=== PATIENT | male | born 1960 | race Caucasian/White ===

== ENCOUNTER 2020-03-01 05:49 | Observation (INO) | payer OTHER, SELFPAY ==
[2020-03-01] VITALS (11 sets, daily range): BP systolic 140–179; BP diastolic 63–84; PULSE 49–60; RESP 15–18; TEMP 36.1–36.6; O2SAT 94–96; BMI 54.3; BMI 53.1; BMI 54.4
--- NOTE | 2020-03-01 05:52 | ED.RN ---
CALLED FOR EKG PER RN REQUEST, PULLED OLD EKGS FOR
--- NOTE | 2020-03-01 05:56 | RAD_ITS ---
STUDY: X-RAY CHEST REASON FOR EXAM: Male, 59 years old. Chest pain and shortness of breath. TECHNIQUE: AP portable upright COMPARISON: None. FINDINGS: No evidence of pneumonia, pulmonary edema, pneumothorax or pleural effusion. Cardiac silhouette, hilar and mediastinal contours with no acute findings. Heart size normal. Atherosclerosis of the thoracic aorta. Degenerative osseous changes with no acute osseous abnormality. RAD/Chest 1 View (Portable) IMPRESSION: No acute findings. Electronically Signed: Andrés Barba, at 6:52 EDT Tel , Service support ,
--- NOTE | 2020-03-01 05:56 | EKG12_ITS ---
Test Reason : Blood Pressure : / mmHG Vent. Rate : 050 BPM Atrial Rate : 050 BPM P-R Int : 136 ms QRS Dur : 118 ms QT Int : 508 ms P-R-T Axes : 064 -08 098 degrees QTc Int : [address] & T wave abnormality, consider lateral ischemia Prolonged QT Abnormal ECG When compared with ECG of 01-MAR-2020 05:53, MANUAL COMPARISON REQUIRED, DATA IS UNCONFIRMED Confirmed by BIPIN MATT, RUPERT ([id number]), book or script editor EL KOLB ([id number]) on 03/05/2020 2:16:04 PM Referred By: SUJIT Confirmed By:ELYSIA VOSS MD
--- NOTE | 2020-03-01 05:57 | ED.VIS.CHEST ---
History of Present Illness Chief Complaint: Chest Pain Informant: Patient Onset: Hours - 3-3.5 Activity at onset: - - awoke with sx Timing: Continuous Quality: Dull Location: Substernal - Radiating to both sides of chest, worse to the left Current Severity: Moderate Maximum Severity: Severe Worsened By: Exertion - light activity, at work. Not Worsened By: Movement of Arm, Movement of Torso, Breathing, Coughing Relieved By: NTG Associated Symptoms: Nausea, Diaphoresis, Dyspnea, Lightheadedness. 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 Started breaking out in a cold sweat, felt lightheaded, weak, dyspnea, and nauseated with it. Never had this before. His father of a heart attack at age 65 and had a CABG 13 years before that. Patient is a non-smoker. Compliant with his blood pressure medication. Paramedics stated that at his initial evaluation, his blood pressure was over 200, after the 2 nitroglycerin and came down to the 170s which is where it is now for us. Patient still having chest discomfort that is significant, after 2 nitroglycerin. No known history of heart problems. He did have a remote prior treadmill stress test that was negative, he states it was not recent and he cannot remember how many years ago it was. Prior Similar Symptoms: No - Feels distinctly different than reflux burning he has had in the past in his esophagus Recent Illness/Hospitalization: No CVD Risk Factors: Hypertension, Family History 1' </=55. Negative for: Diabetes, Hypercholesterolemia, Smoking PE Risk Factors: Recent Travel/Surgery - Travel to [place] 1-2 weeks ago, Cancer - History of prostate cancer, recently treated with implanted seeds. Negative for: Recenet Immobilization, Prior DVT or PE, OCP + Smoking + >/=35 - Past Medical History (1) HTN (hypertension) Status: Chronic (2) GERD (gastroesophageal reflux disease) Status: Chronic Past Medical History - Allergies and Home Meds Allergies/Adverse Reactions: Allergies No Known Allergies Allergy (Verified 03/01/20 06:00) Primary Care Physician: NOT,DEFINED [NON-STAFF] - Smoking Status: Former smoker - quit 14 yrs ago Drugs: None - Family History Paternal Family History: Reports: Heart Disease - father Review of Systems General: Reports: Malaise, Sweats. Denies: Chills, Fever Eyes: Denies: Visual changes - bilaterally, Diplopia ENT: Denies: Bilateral ear pain, Rhinorrhea, Sore throat Cardiovascular: Reports: Chest pain. Denies: Palpitations Respiratory: Reports: Dyspnea. Denies: Cough, Dyspnea on exertion Gastrointestinal: Reports: Nausea. Denies: Abdominal pain, Vomiting, Diarrhea, Melena, Hematochezia Genitourinary: Denies: Dysuria, Hematuria, Frequency Musculoskeletal: Reports: Swelling - BLE 1-2 wks, Extremity Pain - chronic left shoulder pain due to partial rotator cuff tear. Denies: Myalgias, Neck pain, Back pain Skin: Denies: Rash, Wounds Neurological: Denies: Headache, Weakness, Numbness Physical Exam Vital Signs/Narrative: Vital Signs Temp Pulse Resp BP Pulse Ox 03/01/20 05:53 96.9 F L 60 18 175/84 H 95 Inital Vital Signs reviewed: Yes General: Well nourished, Well developed, Obese, No Acute Distress Head: Normocephalic, Atraumatic Eyes: Perrl, EOMI ENT: Moist mucous membranes, No rhinorrhea Neck: Supple, Nontender, No lymphadenopathy, No JVD Cardiovascular: Regular rate, Regular rhythm, No murmurs. Negative for: Tachycardia Respiratory: No distress, CTA bilaterally, Chest nontender Abdomen: Soft, Nontender, Nondistended, Normal bowel sounds Back: Nontender, Normal Inspection Extremities: Nontender, Edema - 1+ bLE midshin Skin: Normal color, No rash, No Trauma Neurological: Alert, Oriented x3, Cranial nerves II-XII grossly intact, Normal Strength, Normal Sensation Psychological: Normal affect, Normal Mood Diagnostic/Tx/Re-eval Impressions Chest X-Ray 03/01/20 05:56 IMPRESSION: No acute findings. Electronically Signed: Andrés Barba, at 6:52 EDT Tel , Service support , 03/01/20 05:56 Chest 1 View (Portable) [RAD] Stat Laboratory Results 03/01/20 03/01/20 03/01/20 06:20 06:20 06:20 WBC 5.8 RBC 4.84 Hgb 12.3 L Hct 39.7 L MCV 82.0 MCH 25.4 L MCHC 31.0 L RDW Std Deviation 46.2 H RDW Coeff of Prasanna 15.5 H Plt Count 206 MPV 11.0 Immature Gran % (Auto) 0.200 Neut % (Auto) 64.9 Lymph % (Auto) 18.4 L Barber % (Auto) 10.1 H Eos % (Auto) 5.9 H Baso % (Auto) 0.5 Absolute Neuts (auto) 3.8 Absolute Lymphs (auto) 1.06 Nucleated RBC % 0 APTT 28.0 Sodium 139 Potassium 4.8 Chloride 108 H Carbon Dioxide 31.0 Anion Gap 0 L BUN 19 H Creatinine 0.91 Estim Creat Clear Calc 101.22 Est GFR (MDRD) Af Amer 110 Est GFR (MDRD) Non-Af 91 BUN/Creatinine Ratio 20.9 H Glucose 123 H Calcium 8.9 Troponin I < 0.015 - Rhythm Strip Rhythm Strip: Sinus Rhythm Rate: 60 Ectopy: None - EKG Initial EKG Interpretation: Sinus Rhythm, No Acute Injury Pattern, Inverted T-Waves - lateral leads Prior: Changed MICHELA Risk: No Positive MICHELA Elements Score: 0 - Medical Decision Making Patient has a concerning history. He was improving with nitroglycerin, we gave him a third which did not make a big difference, so he was additionally treated with morphine and nitroglycerin paste. He remained hemodynamically stable, his blood pressure came down to 140/70, being over 200 prior to arrival for EMS. His MICHELA score is 0, however his heart score is 5. His troponin returned negative, his EKG is abnormal with changes in T wave inversions compared with his old one laterally, however no ST segment deviations. Plan is for admission to PCU. H-2 E-1 A-1 R-1 T-0 ED Disposition - Plan for ED Patient: Disposition: [facility] Diagnosis: Chest pain, unspecified Referrals: NOT,DEFINED [NON-STAFF] -
[2020-03-01] MEDS: Nitroglycerin SL (ED/IMG/CATH) 0.4 MG TABLET SUBLINGUAL (06:11)
[2020-03-01 06:37] LABS: Absolute Lymphocyte Count 1.06 X10^3/uL (0.83-4.51); Absolute Neutrophil Count 3.8 X10^3/uL (2.0-7.7); Basophil# 0.03 X10^3/uL; Basophil% 0.5 % (0-1); Eosinophil# 0.34 X10^3/uL; Eosinophils% 5.9 % (0-5); Hematocrit 39.7 % (40-54); Hemoglobin 12.3 g/dL (13.0-16.5); Lymphocyte # 1.06 X10^3/ul (4.0); Lymphocyte % 18.4 % (19-41); Mean Corpuscular Hgb 25.4 pg (27.0-32.0); Monocyte# 0.58 X10^3/uL; Monocyte% 10.1 % (0-10); NRBC Flagged by Analyzer 0 % (0-5); Neutrophil # 3.75 X10^3/uL (2.7-7.7); Neutrophil % 64.9 % (47-70); Platelet Count 206 K/mm3 (150-450); RBC Distribution Width CV 15.5 % (11.6-14.6); RBC Distribution Width SD 46.2 fl (35.1-43.9); Red Blood Count 4.84 M/mm3 (4.6-6.2); White Blood Count 5.8 K/mm3 (4.4-11.0)
[2020-03-01] MEDS: 0.9% Normal Saline 1,000 ML 150 ML IV (06:39)
[2020-03-01] MEDS: Morphine 4 MG/ML Syringe IV ×3 (06:40→18:16)
[2020-03-01] MEDS: Ondansetron 4 MG/2 ML Vial IV (06:40)
[2020-03-01 06:57] LABS: Anion Gap 0 (5-15); BUN 19 mg/dL (7-18); BUN/Creat Ratio 20.9 RATIO (10-20); Calcium,Total 8.9 mg/dL (8.5-10.1); Chloride 108 mmol/L (98-107); Creatinine, Serum 0.91 mg/dL (0.70-1.30); EST Glomerular Filtration Rate 91 mL/min (>60); Est Glom Filt Rate - Afr Amer 110 mL/min (>60); Estimated Creatinine Clearance 101.22 ml/min; Glucose 123 mg/dL (74-106); Potassium 4.8 mmol/L (3.5-5.1); Sodium Level 139 mmol/L (136-145)
[2020-03-01] MEDS: Acetaminophen 500 MG Tablet 1000 MG PO (07:22)
[2020-03-01] MEDS: Nitroglycerin Oint 1 INCH PACKET TRANSDERM. (07:23)
--- NOTE | 2020-03-01 08:08 | EKG12_ITS ---
Test Reason : CP Blood Pressure : / mmHG Vent. Rate : 061 BPM Atrial Rate : 061 BPM P-R Int : 172 ms QRS Dur : 110 ms QT Int : 440 ms P-R-T Axes : 010 -27 101 degrees QTc Int : 442 ms Normal sinus rhythm Nonspecific ST and T wave abnormality Abnormal ECG Confirmed by AMRIK MATT, ANURAG ([id number]), newspaper or periodical editor SHAUN VIDES ([id number]) on 03/06/2020 8:51:35 AM Referred By: BB Confirmed By:ANURAG ROWLEY MD
--- NOTE | 2020-03-01 08:59 | PCM.HP.STD ---
Problem List (1) Chest pain, unspecified Status: Acute Qualifiers: Chest pain type: precordial pain Qualified Code(s): R07.2 - Precordial pain History of Present Illness Date of Admission: 03/01/20 Chief Complaint: Chest pain The patient is a 59 year old M who was seen in the emergency room at [facility] with chief complaint of chest pain which started approximately 230 this morning after he got up to get ready for work. Chest pain has been continuous since that time, he describes it as if somebody punched me in the chest, it goes to his mid back area and somewhat to the left shoulder area. Is not accompanied by any nausea or shortness of breath. Patient has no history of heart disease, he does take medicines for hypertension. Work-up in the emergency room included an EKG which showed T wave inversions in lead I and aVL which was different from his previous EKG several years ago. There were no acute ischemic changes on EKG. Chest x-ray was ordered and was unremarkable, lab was ordered and his lab was unremarkable including troponin. On examination, patient appeared to have similar chest pain on palpation of the chest during my exam. Patient will be placed in observation status on PCU, cardiac enzymes will be repeated x1, if his next troponin is normal he will undergo a pharmacological nuclear stress test today. Past Medical History Past Medical History (Chronic Problems): Chronic Problems HTN (hypertension) (Chronic) GERD (gastroesophageal reflux disease) (Chronic) Allergies No Known Allergies Allergy (Verified 03/01/20 06:00) Home Medications: Ambulatory Orders Medication Instructions Recorded Amitriptyline HCl [Elavil] 10 mg PO QHS 03/01/20 Cyanocobalamin (Vitamin B-12) 1,000 mcg PO DAILY 03/01/20 [Vitamin B-12] Losartan Potassium [Cozaar] 100 mg PO QHS 03/01/20 Metoprolol Tartrate [Lopressor 50 mg PO BID 03/01/20 (Beta Arcelia)] Omeprazole 20 mg PO DAILY 03/01/20 Sertraline HCl [Zoloft] 25 mg PO DAILY 03/01/20 Topiramate 25 mg PO BID 03/01/20 Surgical History: cholecystectomy, - - Multiple hernia repair, removal of seminoma, radioactive seed implants for prostate cancer, foot surgery Psychiatric History: No pertinent psych hx Lives: Spouse/ Significant Other Smoking Status: Former smoker Tobacco Use: Non-smoker Alcohol: None Drugs: None - *Family History Paternal History Items: Heart Disease - of PA at age 65 Maternal History Items: Hypertension Review of Systems Constitutional: Denies: Anorexia, Chills, Fever, Night Sweats, Malaise, Weakness, Weight Change, Fatigue Eyes: Denies: Cataracts, Conjunctivae Inflammation, Double vision, Drainage HEENT: Denies: Difficulty Swallowing, Dysphasia, Ear Pain, Eye Pain, Nasal bleeding, Nasal Congestion, Post Nasal Drip Cardiovascular: Reports: Chest Pain. Denies: Claudication, Chest Pressure, Chest Tightness, Edema, Heaviness, Orthopnea, Palpitations Respiratory: Denies: Cough, Hemoptysis, Shortness of breath at rest, Shortness of breath upon exertion Gastrointestinal: Denies: Abdominal Pain, Constipation, Diarrhea, Hematemesis, Hematochezia, Nausea, Melena, Vomiting Genitourinary: Denies: Dysuria, Frequency, Hematuria, Hesitancy, Urgency Musculoskeletal: Denies: Back Pain, Foot Pain, Joint Pain, Joint stiffness, Joint swelling Skin: Denies: Dryness, Jaundice, Pruritis, Rash Neurological: Denies: Blurred vision, Double vision, Slurred speech, Difficulty swallowing, Focal weakness, Headaches, Incoordination, Numbness, Tingling Psychiatric: Denies: Anxiety, Depression, Homicidal Ideations, Suicidal Ideations Endocrine: Denies: Change in Body Habitus, Heat/ Cold Intolerance, Polydipsia, Polyuria Hematologic/ Lymphatic: Denies: Adenopathy, Anemia, Easy Bruising, Easy Bleeding, Petechiae, Purpura VTE Information - Inpt Only VTE Present on Admission: No VTE Mechan Device Prophylaxis: None VTE Pharm Prophylaxis ordered?: No Reason prophylaxis not ordered:: Treatment Not Indicated Patient Problems: Active and Suspected Problems Chest pain, unspecified (Acute) - Physical Exam Vitals/I&O's: Vital Signs Temp Pulse Resp BP Pulse Ox 97.6 F L 49 L 18 151/82 H 96 03/01/20 08:10 03/01/20 08:10 03/01/20 08:10 03/01/20 08:10 03/01/20 08:10 Oxygen Delivery Method Room Air Weight: 182.707 kg Body Mass Index (BMI) 53.1 Intake and Output for Last 24 Hours 02/28/20 02/29/20 03/01/20 23:59 23:59 23:59 Intake Total Balance General: Alert, Oriented x3, Cooperative, No apparent distress, Well developed, Well nourished HEENT: Atraumatic, PERRLA, EOMI, Normocephalic Oral: Moist Mucosa Neck: Supple, No JVD, Negative Carotid Bruits, Trachea Midline, Thyroid Normal Size and Texture Lungs: Clear to auscultation, Normal air movement, No rhonchi, No wheeze, No rales Cardiovascular: Regular rate, Regular Rhythm, Normal S1, Normal S2, No murmurs, PMI Normal, No rub noted Abdomen: Bowel Sounds Present, Soft, Non Tender, Non-Distended, No hernias noted Extremities: No clubbing, Capillary Refill Less than 3 Seconds, Edema - Generalized lower leg edema is noted bilaterally Skin: No rashes, No breakdown Musculoskeletal: No Tenderness to Palpation of Joints or Extremities Neurological: Cranial nerves II-XII grossly intact, Neuro grossly intact, Sensory exam intact to light touch and pain, Coordination normal Psych/Mental Status: Normal Affect, Appropriate, Alert and oriented to time, place, person, mood and affect Laboratory Results 03/01/20 06:20: WBC 5.8, RBC 4.84, Hgb 12.3 L, Hct 39.7 L, MCV 82.0, MCH 25.4 L, MCHC 31.0 L, RDW Std Deviation 46.2 H, RDW Coeff of Prasanna 15.5 H, Plt Count 206, MPV 11.0, Immature Gran % (Auto) 0.200, Neut % (Auto) 64.9, Lymph % (Auto) 18.4 L, [place] % (Auto) 10.1 H, Eos % (Auto) 5.9 H, Baso % (Auto) 0.5, Absolute Neuts (auto) 3.8, Absolute Lymphs (auto) 1.06, Nucleated RBC % 0 03/01/20 06:20: APTT 28.0 03/01/20 06:20: Sodium 139, Potassium 4.8, Chloride 108 H, Carbon Dioxide 31.0, Anion Gap 0 L, BUN 19 H, Creatinine 0.91, Estim Creat Clear Calc 101.22, Est GFR (MDRD) Af Amer 110, Est GFR (MDRD) Non-Af 91, BUN/Creatinine Ratio 20.9 H, Glucose 123 H, Calcium 8.9, Troponin I < 0.015 Current Medications Sodium Chloride () 250 mls @ 15 mls/hr IV .[id number] PRN PRN Reason: Saline Flush Sodium Chloride () 250 mls @ 15 mls/hr IV .[id number] PRN PRN Reason: Additional IVPB Infusion Morphine Sulfate () 4 mg IV Q3H PRN PRN PRN Reason: Pain Score 6-10/10 Ondansetron HCl (Zofran) 4 mg IV Q8H PRN PRN PRN Reason: NAUSEA/VOMITING Sodium Chloride () 10 - 40 ml IV UD PRN PRN Reason: SALINE FLUSH Assessment/Plan All Active Problems Chest pain, unspecified (Acute) #1 precordial chest pain-etiology unclear, patient will be placed in observation status on PCU, repeat troponin will be obtained, this troponin is unremarkable he will undergo a pharmacological nuclear stress test today. #2 essential hypertension-patient is on Lotensin #3 class III obesity/morbid obesity-may complicate treatment #4 GERD
[2020-03-01] MEDS: 0.9% Saline Lock 10 ML Syringe IV ×2 (11:30→18:16)
--- NOTE | 2020-03-01 13:50 | STRESSREP ---
Stress Test Report Date: 03/01/2020 Procedure: Pharmacologic stress nuclear imaging study Indications: Chest pain Consent: Per the patient Procedure: The patient underwent pharmacologic (Regadenoson) evaluation with a peak heart rate of 69 beats per minute (42 %predicted maximal heart rate) and a peak blood pressure of 168/104 mmHg. The baseline ECG demonstrated normal sinus rhythm, nonspecific ST-T changes. EKG during lexiscan infusion revealed no significant change from baseline. EKG post infusion revealed no significant change from baseline [There were no cardiac dysrhythmias pretest, during pharmacologic infusion, or recovery]. [There was no complaint of chest discomfort during pharmacologic infusion or recovery]. The examination was discontinued secondary to completion of protocol. Impression: 1. Lexiscan stress test test is negative for Lexiscan infusion induced EKG changes of ischemia. 2. Lexiscan stress test test is negative for Lexiscan infusion induced chest pain. 3. Results of the nuclear portion of the test is as below Myocardial perfusion imaging study: Technique: The patient was injected with 14.6 millicuries of technetium 99m Cardiolite and subsequently rest SPECT Cardiolite nuclear imaging was obtained in the horizontal long, vertical long, and short axis views. The patient underwent pharmacologic (Regadenoson) evaluation. Please see above for details. The patient was injected with 44.7 millicuries of technetium 99m Cardiolite and subsequently stress SPECT Cardiolite nuclear imaging was obtained in the horizontal long, vertical long, and short axis views. A gated Cardiolite study at peak stress was obtained. Interpretation: Rest and stress SPECT Cardiolite nuclear imaging status post realignment, normalization, and attenuation correction demonstrate [mildly decreased radioisotope uptake in the apex on both the rest and stress images. There is no significant reversibility suggestive of significant ischemia]. Gated images reveal no significant regional wall motion abnormalities. The reported LVEF is 52%. Impression: 1. There is no evidence of significant ischemia or infarction. 2. Estimated ejection fraction is 52%. This note was generated with [employer] software. It may contain incorrect words, spelling, and punctuation that were not noted in checking the note before signing.
--- NOTE | 2020-03-01 15:46 | CT_ITS ---
STUDY: CTA CHEST REASON FOR EXAM: Male, 59 years old. 80 rad into the mid back and left shoulder. Former smoker. History of prostate cancer with radioactive seed implantation. History of testicular seminoma with orchiectomy. History of cholecystectomy, hernia repair, hypertension and reflux disease.. RADIATION DOSAGE (If Supplied By Facility): CTDIvol = ( 18.6 ) mGy, DLP = ( 533.52 ) mGycm TECHNIQUE: The examination was performed with the intravenous administration of 100 ML [id number]. Post-processing of the angiographic images was performed, with multiplanar reformation and 3D reconstruction. Individualized dose optimization techniques were used for this CT. COMPARISON: None. FINDINGS: Normal enhancement of the main pulmonary artery and right and left pulmonary arteries. Normal enhancement of the bilateral peripheral pulmonary arteries. There is no demonstrated pulmonary embolism. Minimal atherosclerotic changes of the thoracic aorta without aneurysm. There is no demonstrated aortic dissection. Normal heart and pericardium. Nonspecific subcentimeter mediastinal lymphadenopathy. Normal hilar regions. Normal visualized trachea and bronchi. The lungs are well expanded. Normal pulmonary parenchyma. Normal pleura. Normal chest wall structures. There are degenerative changes of thoracic spine. Normal visualized upper abdomen. CT/CTA Chest W/WO Contrast IMPRESSION: Normal CTA chest examination, without a demonstrated pulmonary embolism or arterial dissection. Electronically Signed: Everardo Serrato DO at 17:00 EDT Tel [phone], Service support ,
--- NOTE | 2020-03-01 18:19 | PCM.DC ---
- Discharge Diagnoses Current Active Problems: Current Active and Chronic Problems Chest pain, unspecified (Acute) You will use the following diet at home:: No restrictions Your food should be the consistency of: Regular Your liquids should be the consistency of: Regular/Thin Discharge Activity: Return to Normal Activity Weight Bearing Status: Full weight bearing Allergies/Adverse Reactions: Allergies No Known Allergies Allergy (Verified 03/01/20 06:00) Medications to take at Discharge Amitriptyline HCl [Elavil] 10 mg PO QHS 03/01/20 Amlodipine [Norvasc] 5 mg PO DAILY #30 tab 03/01/20 Hydrochlorothiazide [Hctz] 25 mg PO DAILY #30 tab 03/01/20 Hydrocodone/Acetaminophen [[place] 5-325 Tablet] 1 each PO Q4H PRN PRN 7 Days #20 tablet 03/01/20 Losartan Potassium [Cozaar] 100 mg PO QHS 03/01/20 Metoprolol Tartrate 25 mg PO BID #1 tablet 03/01/20 Omeprazole 20 mg PO DAILY 03/01/20 Sertraline HCl [Zoloft] 25 mg PO DAILY 03/01/20 Topiramate 25 mg PO BID 03/01/20 The following prescriptions were given: Hydrochlorothiazide [Hctz] 25 mg PO DAILY #30 tab Transmission Status: Pending to ALEXANDRA KUMAR[facility] CABRERA Metoprolol Tartrate 25 mg PO BID #1 tablet Hydrocodone/Acetaminophen [[place] 5-325 Tablet] 1 each PO Q4H PRN PRN 7 Days #20 tablet PRN Reason: Pain Score 1-10/10 Transmission Status: Received by ALEXANDRA KUMAR-[facility] CABRERA Amlodipine [Norvasc] 5 mg PO DAILY #30 tab Transmission Status: Pending to ALEXANDRA AID[facility] MOSLEYEMANA CABRERA Primary Care Physician: NOT,DEFINED [NON-STAFF] - Please follow up with your Primary Care Physician in: Physician in 7 days-get a BMP checked to check your potassium Test Results: Test results from this visit will be discussed in further detail at your follow-up appointment, if applicable.
--- NOTE | 2020-03-02 18:01 | PCM.DC.SUM ---
Discharge Date and Diagnosis Date of Admission: 03/01/20 Date of Discharge: 03/01/20 - Primary Discharge Diagnosis Acute Problems: #1 musculoskeletal chest pain #2 uncontrolled hypertension #3 obstructive sleep apnea - Secondary Discharge Diagnosis Chronic Problems: Chronic Problems HTN (hypertension) (Chronic) GERD (gastroesophageal reflux disease) (Chronic) Hospital Course and Treatment Operations: None Procedures: Nuclear stress test Summary of Care Provided: The patient is a 59 year old M was seen in the emergency room at [facility] with a chief complaint of chest pain that began approximately 2:30 AM the day was seen in the emergency room. Work-up in the emergency room included an EKG which showed normal sinus rhythm with T wave inversions in 1 and aVL, labs were unremarkable, patient's blood pressure was elevated. Patient was placed in observation status on PCU, repeat cardiac enzymes were negative, he underwent a nuclear stress test that showed no evidence of reversible ischemia. Patient also had a CT of the chest performed which showed no evidence of a PE or aortic dissection. I had a long discussion with the patient and his about his medications, patient's blood pressure is not under good control, patient states that his blood pressure has been consistently not under good control despite the medicines he has been placed on by his physician. I decided to review his medications and readjust him at the time of discharge. Patient was examined on 03/01/2020: On examination he appeared in good health and spirits. Vital signs as documented. Skin warm and dry and without overt rashes. Neck without JVD, neck was supple, trachea midline, thyroid was normal. Lungs clear bilaterally, normal air movement was noted. Heart exam notable for regular rhythm, normal sounds and absence of murmurs, rubs or gallops. Abdomen unremarkable and without evidence of organomegaly, masses, or abdominal aortic enlargement. Bowel sounds are present, abdomen is not distended. Extremities nonedematous, no cyanosis was noted, no clubbing was noted. Neuro: Cranial nerves II through XII are grossly intact, no focal motor deficits were noted, sensation to light touch and pinprick intact, motor exam 5/5 throughout. Psych: Patient is alert and oriented x3, he does not appear anxious or depressed, he does not appear agitated. Patient was discharged home in stable condition on 03/01/2020 - Physical Exam Vitals/I&O's: Vital Signs Temp Pulse Resp BP Pulse Ox 97.1 F L 50 L 18 170/76 H 95 03/01/20 17:43 03/01/20 17:43 03/01/20 17:43 03/01/20 17:43 03/01/20 17:43 Oxygen Delivery Method Room Air Weight: 182.7 kg Body Mass Index (BMI) 53.1 Intake and Output for Last 24 Hours 02/29/20 03/01/20 03/02/20 23:59 23:59 23:59 Intake Total 646.5 / 646.5 Balance 646.5 / 646.5 Discharge Activity: Return to Normal Activity Weight Bearing Status: Full weight bearing Home Medications: Medications to take at Discharge Amitriptyline HCl [Elavil] 10 mg PO QHS 03/01/20 Amlodipine [Norvasc] 5 mg PO DAILY #30 tab 03/01/20 Hydrochlorothiazide [Hctz] 25 mg PO DAILY #30 tab 03/01/20 Hydrocodone/Acetaminophen [[place] 5-325 Tablet] 1 ea PO Q4H PRN PRN 7 Days #20 tab 03/01/20 Losartan Potassium [Cozaar] 100 mg PO QHS 03/01/20 Metoprolol Tartrate 25 mg PO BID #1 tab 03/01/20 Omeprazole 20 mg PO DAILY 03/01/20 Sertraline HCl [Zoloft] 25 mg PO DAILY 03/01/20 Topiramate 25 mg PO BID 03/01/20 Following Prescriptions Were Given to Patient: Hydrochlorothiazide [Hctz] 25 mg PO DAILY #30 tab Transmission Status: Received by [id number] Metoprolol Tartrate 25 mg PO BID #1 tab Hydrocodone/Acetaminophen [[place] 5-325 Tablet] 1 ea PO Q4H PRN PRN 7 Days #20 tab PRN Reason: Pain Score 1-10/10 Transmission Status: Received by [id number] Amlodipine [Norvasc] 5 mg PO DAILY #30 tab Transmission Status: Received by [facility] Primary Care Physician: NOT,DEFINED [NON-STAFF] - Please follow up with your Primary Care Physician in: Physician in 7 days-get a BMP checked to check your potassium Disposition: Home Minutes spent on discharge:: 30 Patient Condition:: Stable Medical Necessity - Tobacco Use Smoking Status: Former smoker Tobacco Use: Non-smoker Meaningful Use Info Meaningful Use Diagnoses (Choose all that apply): None applicable OBSV E&M: 93969 Observ/hosp same date L3
== END 2020-03-01 18:22 | disposition home or self-care (01) ==
LOC: ED 06:48 → PCU 08:41
PROVIDERS: Admitting Provider Internal Medicine; Emergency Provider Emergency Medicine; PCP Nurse Practitioner Family; Visit Provider Internal Medicine
DX: R07.89 Other chest pain (principal); R53.1 Weakness; R42 Dizziness and giddiness; I10 Essential (primary) hypertension; K21.9 Gastro-esophageal reflux disease without esophagitis; Z82.49 Family history of ischemic heart disease and other diseases of the circulatory system; E66.01 Morbid (severe) obesity due to excess calories; Z79.899 Other long term (current) drug therapy; Z87.891 Personal history of nicotine dependence; Z68.43 Body mass index [BMI] 50.0-59.9, adult; Z71.3 Dietary counseling and surveillance; G47.33 Obstructive sleep apnea (adult) (pediatric)
CPT/HCPCS: 36415; 71045; 71275; 78452; 80048; 84484; 85025; 85730; 93005; 93017; 96374; 96375; 96376; 97802; 99218; 99285; A9500; J7030; Q9967; A4216; G0378; J2405; J2785

== ENCOUNTER → 2020-03-08 13:53 | Outpatient (CLI) | payer OTHER, SELFPAY ==
[2020-03-01 08:15] VITALS: BMI 53.1
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
== END ==
PROVIDERS: PCP Nurse Practitioner Family; Referring Provider Orthopaedic Surgery; Visit Provider Orthopaedic Surgery
DX: M19.012 Primary osteoarthritis, left shoulder (principal)
CPT/HCPCS: 72050; 73030

== ENCOUNTER → 2020-03-15 17:34 | Outpatient (CLI) | payer SELFPAY ==
[2020-03-08 13:56] VITALS: BMI 53.1
== END ==
PROVIDERS: PCP Nurse Practitioner Family; Referring Provider Orthopaedic Surgery; Visit Provider Orthopaedic Surgery
DX: M54.12 Radiculopathy, cervical region (principal)

== ENCOUNTER 2020-05-02 07:54 | Day surgery (SDC) | payer OTHER, SELFPAY ==
[2020-03-08 13:56] VITALS: BMI 53.1
[2020-04-19 15:49] VITALS: BMI 53.1
[2020-05-02] VITALS (8 sets, daily range): BP systolic 123–177; BP diastolic 61–97; PULSE 57–68; RESP 16; TEMP 36.2–37.1; O2SAT 93–97; BMI 51.7
--- NOTE | 2020-05-02 07:37 | HP.PCM_ITS ---
History and Physical I have re-examined the patient. There are no clinical changes since date of exam. Intake Intake Visit Reasons: Left shoulder Is patient in pain?: Yes Allergies No Known Allergies Allergy (Verified 04/24/20 08:39) [facility] Medical History (Updated 03/08/20 @ 13:56 by Joellen Munoz) History of prostate cancer (Acute) Social History (Updated 03/08/20 @ 15:[address] Aleksandra Mclaughlin, DO) Smoking Status: Former smoker HPI Left shoulder: Details: Parts of this documentation were recorded by a scribe, this documentation accurately reflects the service provided and the decisions made by me, JACY Logan 04/19/20 [id number]. RUSTY TINEO is a 59 year old M here today for left shoulder pain. Patient states that he continues to have shoulder pain over his entire shoulder. He has limited shoulder range of motion due to pain. He notes that he continues to have cervical spine as well. Patient complains of pain into his arm at times and his arm feels heavy. He had an MRI which is here for review. ROS [facility] Reports joint pain, Reports limited joint movement Skin/Breast Reports system reviewed and no additional complaints, except as docu Neuro Yes system reviewed and no additional complaints, except as docu Ortho Exam Left Shoulder Skin/Wound: No ecchymosis, No erythema, No swelling Testing: Yes Hawkin's, Yes Neer's, Yes Speed's, Yes TTP Biceps, Yes TTP AC Joint, No AROM-Forward Elevation 0-180, No AROM-External Rotation at 90 0-60, No AROM-External Rotation at side 0-60, No Apprehension Test, Yes empty can (Evident pain minor weakness), No [place], Yes belly press normal SHOULDER: No acute abnormalities on inspection the left shoulder. No localized or generalized swelling and no skin changes. Patient does have some decreased range of motion of the left side compared to the right shoulder. He does have evident impingement signs with evidence of biceps involvement. He does however continue to have some pain in the left shoulder with cervical range of motion. He has normal sensation throughout the extremity normal distal radial pulses. Spine General: alert, awake, oriented x3 DTR's: Rt Triceps: 2+, Lt Triceps: 2+, Rt Biceps: 2+, Lt Biceps: 2+, Rt Brachioradialis: 2+, Lt Brachioradialis: 2+ SPINE TESTING CERVICAL Compression pain: Left Shoulder depression pain: Left THORACIC LUMBAR Musculoskeletal Cervical Spine: cervical ROM normal, pain with cervical ROM, No cervical spasm, cervical spinal tenderness Strength 0=absent - 5=normal Assessment & Plan Problems 1. Acute pain of left shoulder M25.512 2. Impingement syndrome, shoulder, left M75.42 3. Biceps tendinitis of left shoulder M75.22 Plan Patient presents the office today for left shoulder and neck symptoms. Patient is also here to review his MRI of the cervical spine. At this time patient continues to have symptoms in the left shoulder as well as in the cervical spine. 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 I do think that there is the possibility that some of his symptoms could be coming from the neck at the same time I do think he has some signs and symptoms likely coming from his shoulder. So at this time unfortunately I do think that he should see his denture contour wire specialist at the same time we will have to review this with surgeon to determine whether shoulder arthroscopy is also warranted and if so whether this should be done prior or after evaluation by spine surgeon. I do not want to do steroidal anti-inflammatories at this time in case shoulder arthroscopy is the next that. Patient has impingement syndrome and biceps tendinosis partial-thickness rotator cuff tear. Patient is aware that he also has some neck pathology that can can be contributing to his arm heaviness. However at this time patient would like to do conservative treatment for his neck and more aggressive treatment with his shoulder is the shoulder providing him limitations in strength and pain. Risk benefits and alternatives were discussed with patient. Risks include but not limited to blood loss, blood clot, infection, neurovascular, failure procedure, loss of life and loss of limb. Patient is aware like proceed with left shoulder arthroscopy with repair as indicated. We discussed the current risk associated COVID-19. While it is understood that there is a community spread of COVID 19 the risk of hussein COVID-19 while at [facility] is very low, however, the risk cannot be co mpletely mitigated because of the community spread of the disease. We discussed in detail the risk of exposure to and or potential harm posed by the COVID-19 virus with having a surgery/procedure at this time versus the risk of delaying the surgery/procedure. Is not possible to know either the risk of delaying the surgery procedure or chance of getting an infection with perfect accuracy, but a joint decision was made to proceed at this time with a schedule surgery/procedure as indicated on the consent form. Patient was notified that we will need to comply with any screening or testing [facility] wishes to perform or that surgery may be delayed for any positive results. Coding Diagnoses Acute pain of left shoulder M25.512 ??Chronicity: acute Impingement syndrome, shoulder, left M75.42 Biceps tendinitis of left shoulder M75.22
[2020-05-02] MEDS: Lactated Ringers 1,000 ML 100 ML IV (08:28)
--- NOTE | 2020-05-02 10:33 | PCM.DC.ORTHO ---
Discharge Diet: No Restrictions - may remove sling and use shoulder as much as tolerated, change dressings in 5 days and may get incisions wet at that time in shower, keep dressing clean and dry next 5 days, call with concerns Discharge Activity: May Not Drive May shower in (days): 1 Ice area for (Minutes): 20 - Every hour while awake. Weight Bearing Status: Weight bearing as tolerated Keep extremity elevated above heart level: Operative Extremity Call your doctor if your incision/area has: Continuous Slow Oozing, Sudden Increased Bleeding, Increased Pain/ Swelling, Increased Redness, Foul Smelling Discharge Call your doctor if you observe: Fever of 101 or Higher, Coldness, Increased Pain, Numbness or Tingling, Change in Color, Calf discomfort Allergies/Adverse Reactions: Allergies No Known Allergies Allergy (Verified 05/02/20 08:16) Medications to take at Discharge Amitriptyline HCl [Elavil] 10 mg PO QHS 03/01/20 Amlodipine [Norvasc] 5 mg PO DAILY #30 tab 03/01/20 Hydrochlorothiazide [Hctz] 25 mg PO DAILY #30 tab 03/01/20 Losartan Potassium [Cozaar] 100 mg PO DAILY 03/01/20 Metoprolol Tartrate 25 mg PO BID #1 tab 03/01/20 Omeprazole 20 mg PO DAILY 03/01/20 Sertraline HCl [Zoloft] 25 mg PO DAILY 03/01/20 Topiramate 25 mg PO BID 03/01/20 Hydrocodone Bitart/Apap 5-325 [[place] 5MG-325MG] 1 - 2 tab PO Q6H PRN PRN 5 Days #40 tab 05/02/20 Zolpidem Tartrate [Ambien (Generic)] 5 mg PO QHS PRN PRN #14 tab 05/02/20 The following prescriptions were given: Zolpidem Tartrate [Ambien (Generic)] 5 mg PO QHS PRN PRN #14 tab PRN Reason: Insomnia Transmission Status: Received by [facility] Hydrocodone Bitart/Apap 5-325 [[place] 5MG-325MG] 1 - 2 tab PO Q6H PRN PRN 5 Days #40 tab PRN Reason: Pain Transmission Status: Received by [facility] Primary Care Physician: Freya Krishna NP, CLERK [employer]ATIONS-C [Primary Care Provider] - Test Results: Test results from this visit will be discussed in further detail at your follow-up appointment, if applicable. Please Follow Up With: Aleksandra Mclaughlin, DO - [phone]
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
[2020-05-02] MEDS: Cefazolin 2 GM in 0.9% Normal Saline 100 ML IV (10:55)
[2020-05-02] MEDS: Epinephrine (1 mg/ml) 1 MG/ML VIAL (11:28)
[2020-05-02] MEDS: Mupirocin Ointment 22gm Tube 1 APPLIC (11:53)
== END 2020-05-02 14:46 | disposition home or self-care (01) ==
LOC: SDC 07:54 → AC 07:55
PROVIDERS: Anesthesiology; PCP Nurse Practitioner Family; Referring Provider Orthopaedic Surgery; Visit Provider Orthopaedic Surgery
PROC: (CPT 29827; principal; 2020-05-02 09:20)
DX: M75.22 Bicipital tendinitis, left shoulder (principal); M75.42 Impingement syndrome of left shoulder; Z11.59 Encounter for screening for other viral diseases; Z79.899 Other long term (current) drug therapy; I10 Essential (primary) hypertension; Z87.891 Personal history of nicotine dependence; G47.30 Sleep apnea, unspecified; K21.9 Gastro-esophageal reflux disease without esophagitis
CPT/HCPCS: 29807; 29822; 29828; 87635; C9803; J7120; A4216; J2405; U0003

== ENCOUNTER 2024-04-20 11:27 | Emergency (ER) | payer OTHER, SELFPAY ==
[2024-04-20 11:32] VITALS: BP 148/119; PULSE 86; RESP 18; TEMP 36.6; O2SAT 95; BMI 50.1
--- NOTE | 2024-04-20 11:36 | EKG12_ITS ---
Test Reason : CP Blood Pressure : / mmHG Vent. Rate : 088 BPM Atrial Rate : 000 BPM P-R Int : 000 ms QRS Dur : 108 ms QT Int : 380 ms P-R-T Axes : 000 -72 023 degrees QTc Int : 459 ms Atrial fibrillation Left axis deviation Abnormal ECG Confirmed by Marc Bates ([id number]), editor dictionary SHAUN VIDES ([id number]) on 04/25/2024 10:21:49 AM Referred By: TB/UG Confirmed By:Marc Bates
--- NOTE | 2024-04-20 11:45 | RAD_ITS ---
STUDY: X-RAY CHEST REASON FOR EXAM: Male, 63 years old. Chest pain TECHNIQUE: Single AP portable view of the chest. COMPARISON: Comparison is made with prior study March 01, 2020. FINDINGS: EKG electrodes are seen. The lungs are clear and expanded. There is no demonstrated pleural abnormality. There is mild cardiac enlargement. Normal mediastinum and manuel. Normal visualized pulmonary arteries. There is atherosclerotic calcification of the aortic arch with tortuosity. There are diffuse degenerative changes of the visualized thoracic spine. Normal visualized ribs, clavicles, and shoulders. There is no demonstrated abnormality of the visualized soft tissue structures of the upper abdomen. RAD/Chest 1 View (Portable) IMPRESSION: Mild cardiomegaly. The lungs are clear. Electronically Signed: Heladio Griffin MD at 11:57 EDT ,
[2024-04-20 11:51] LABS: Absolute Lymphocyte Count 0.93 X10^3/uL (0.83-4.51); Absolute Neutrophil Count 6.3 X10^3/uL (2.0-7.7); Basophil# 0.07 X10^3/uL; Basophil% 0.9 % (0-1); Eosinophil# 0.09 X10^3/uL; Eosinophils% 1.1 % (0-5); Hemoglobin 14.1 g/dL (13.0-16.5); Lymphocyte # 0.93 X10^3/ul (0.83-4.51); Lymphocyte % 11.6 % (19-41); Mean Corp Hgb Conc 30.7 g/dL (32-36); Mean Corpuscular Volume 81.6 fL (80-94); Mean Platelet Vol. 11.1 fl (6.2-12.0); Monocyte# 0.58 X10^3/uL; Monocyte% 7.2 % (0-10); NRBC Flagged by Analyzer 0 % (0-5); Neutrophil # 6.32 X10^3/uL (2.7-7.7); Neutrophil % 78.7 % (47-70); Platelet Count 221 K/mm3 (150-450); RBC Distribution Width CV 15.2 % (11.6-14.6); Red Blood Count 5.64 M/mm3 (4.6-6.2)
--- NOTE | 2024-04-20 11:54 | EDS_ITS ---
HPI History of Present Illness Chief Complaint: Chest Pain Detail of Chief Complaint: Chest pain radiating through to the back described as sharp. Informant: patient Onset/Context/Timing Onset: Yesterday (9 PM at rest) Activity at onset: sudden Timing: Continuous Quality: Positive for Sharp Location: - (Center of chest going through back) Current Severity: Moderate Maximum Severity: Moderate Worsened By: Nothing Relieved By: Nothing Associated Symptoms: Positive for - (No diaphoresis. No radiation to shoulders or arms.); Negative for Nausea, Vomiting, Diaphoresis, Dyspnea, Cough, Fever, Lightheadedness, Acid Reflux or Palpitations Narrative Narrative: Patient is a 63-year-old male. He has history of hypertension GERD and unspecified chest pain. He has no known coronary artery disease. Last evening while sitting he developed chest discomfort that radiated through to his back. He had no associated symptoms. He is status postcholecystectomy. He ate at 1800. He had chicken with no skin. Patient denies history of PE or DVT. He denies leg pain, swelling discoloration. He denies black or maroon-colored stool. Patient was recently admitted for chest pain. He was found to have atrial fibrillation at that time. Prior Similar Symptoms: Yes and - (Unknown cause) Recent Illness/Hospitalization: No CVD Risk Factors: Positive for Hypertension; Negative for Diabetes, Hypercholesterolemia, Family History 1' </=55 or Smoking PE Risk Factors: Negative for Recent Travel/Surgery, Recent Immobilization, Prior DVT or PE, Cancer or OCP + Smoking + >/=35 TAD Risk Factors: Positive for Hypertension; Negative for Marfan's Syndrome or Family History [facility] Medical History History of prostate cancer Home Medications ?Medication ?Instructions ?Recorded ?Last Taken ?Type Topiramate 25 mg PO BID headache, BP 03/01/20 05/02/20 History amitriptyline 10 mg tablet 10 mg PO QHS mood 03/01/20 05/02/20 History amlodipine 5 mg tablet 5 mg PO DAILY #30 tabs 03/01/20 05/02/20 Rx hydrochlorothiazide 25 mg tablet 25 mg PO DAILY #30 tabs 03/01/20 Unknown Rx losartan 100 mg tablet 100 mg PO DAILY BP 07/30/20 09/30/20 History metoprolol tartrate 25 mg tablet 25 mg PO BID #1 TAB 03/01/20 05/02/20 Rx omeprazole 20 mg capsule,delayed 20 mg PO DAILY GERD 03/01/20 05/02/20 History release sertraline 25 mg tablet 25 mg PO DAILY mood 03/01/20 05/02/20 History meloxicam 15 mg tablet 15 mg PO DAILY #30 tabs 10/16/20 Unknown Rx Allergy/AdvReac Type Severity Reaction Status Date / Time No Known Allergies Allergy Verified 04/20/24 11:31 Surgical History Status post surgical removal of malignant neoplasm of skin Social History Smoking Status: Former smoker ROS ROS ED Constitutional Constitutional ED: Denies chills, fever(s) or subjective Eyes Eyes: Reports none ENT ENT ED: Denies ear pain or rhinorrhea Cardiovascular Cardiovascular: Reports as per HPI and chest pain; Denies orthopnea, palpitations, paroxysmal nocturnal dyspnea or racing heartbeat Respiratory/Chest Respiratory/Chest: Denies cough, dyspnea, dyspnea on exertion, orthopnea or paroxysmal nocturnal dyspnea Gastrointestinal Gastrointestinal: Denies abdominal pain, constipation, melena, nausea or vomiting Musculoskeletal Musculoskeletal: Reports back pain; Denies myalgias or neck pain Integumentary Denies rash Neurologic Neurologic: Denies headache(s) or paresthesias Psychiatric Psychiatric: Denies anxiety or depression Endocrine Endocrinology: Denies cold intolerance or heat intolerance EXAM Physical Exam Const Vital Signs: 04/20/24 11:32 04/20/24 11:36 04/20/24 11:43 Temperature 97.8 F Temperature Source Oral Pulse Rate 86 Respiratory Rate 18 Respiratory Effort Normal Blood Pressure 148/119 H Blood Pressure Mean 128 Pulse Ox 95 Oxygen Delivery Method Room Air Room Air 04/20/24 12:27 04/20/24 13:00 04/20/24 14:00 Temperature Temperature Source Pulse Rate 60 74 65 Respiratory Rate 18 18 96 H Respiratory Effort Blood Pressure 118/79 126/75 H 129/83 H Blood Pressure Mean 92 92 98 Pulse Ox 94 96 98 Oxygen Delivery Method Room Air Room Air Room Air Positive well nourished and well developed General Appearance ED: well developed and NAD; Negative for pallor HEENT Reports moist mucous membranes normocephalic and atraumatic Eyes PERRL and EOMs intact bilaterally General Eye ED: Negative for scleral icterus Neck no lymphadenopathy and supple Chest Wall palpation of chest normal Resp normal respiratory effort and clear to auscultation bilaterally Cardio regular rate, regular rhythm, S1 normal heart sound, S2 normal heart sound and no murmurs GI normal to inspection, nondistended, normoactive bowel sounds, soft to palpation, non-tender, non-distended and no masses; Negative for hepatosplenomegaly Back/Spine no CVA tenderness Back/Spine Narrative: Inspection is normal. Extremity General Extremety ED: Negative for edema, pulses abnormal or tenderness General Extremity: Negative for edema or pulses abnormal Neuro oriented x3 and CN's II-XII intact bilaterally Sensorium / Orientation: awake and alert Psych mental status grossly normal Skin no rashes or lesions noted and no wounds General Skin Exam: Negative for jaundice or pallor Heart Score History: Slightly/Non-Suspicious ECG: Normal Age: >45 - <65 years Risk Factors: 1 or 2 Risk Factors Troponin: </= Normal Limit Score: 2 MDM MDM MDM Narrative Medical decision making narrative: Differential is cardiac versus noncardiac. Noncardiac may be due to esophagitis, hiatal hernia, reflux. Obtain EKG, chest x-ray and appropriate blood work. History & Record Review Discussion w/independent historian: Patient Lab Data Attestation: I reviewed the patient's lab results. Lab results narrative: CBC is unremarkable. Labs: Laboratory Results - last 24 hr 04/20/24 04/20/24 11:45 13:55 WBC 8.0 RBC 5.64 Hgb 14.1 Hct 46.0 MCV 81.6 MCH 25.0 L MCHC 30.7 L RDW Std Deviation 45.0 H RDW Coeff of Prasanna 15.2 H Plt Count 221 MPV 11.1 Immature Gran % (Auto) 0.500 Neut % (Auto) 78.7 H Lymph % (Auto) 11.6 L Quay % (Auto) 7.2 Eos % (Auto) 1.1 Baso % (Auto) 0.9 Absolute Neuts (auto) 6.3 Absolute Lymphs (auto) 0.93 Nucleated RBC % 0 Sodium 139 Potassium 4.0 Chloride 107 Carbon Dioxide 24.0 Anion Gap 8 BUN 14 Creatinine 1.40 H Estim Creat Clear Calc 91.61 Est GFR (MDRD) Af Amer 66 Est GFR (MDRD) Non-Af 55 L BUN/Creatinine Ratio 10.0 Glucose 150 H Calcium 9.9 Troponin I High Sens 7 7 Radiography Chest X-Ray - ED: 1 View, Read by ED Physician, Normal, Heart, Lungs, Medi astinum, Bony Structures and No Acute Disease Diagnostic Testing: Clinical Impression(s) from Imaging Studies Chest X-Ray 04/20/24 11:45 IMPRESSION: Mild cardiomegaly. The lungs are clear. Electronically Signed: Heladio Griffin MD at 11:57 EDT , EKG Initial EKG: Attestation: I personally reviewed and interpreted this EKG as follows: Interpretation: Atrial Fibrillation (There is a left axis. There is no ischemic changes. Rate is 88. QRS duration in 108 ms. QT duration 180 ms.) Discharge Plan Triage Chief Complaint: Chest Pain ED Provider: Pietro Thrasher Dx/Rx/DC Orders Clinical Impression: Chest pain, HTN (hypertension), GERD (gastroesophageal reflux disease), Atrial fibrillation Instructions: ED Chest Pain, Noncardiac, ED Chest Pain, Uncertain Cause Prescriptions: No Action meloxicam 15 mg tablet 15 mg PO DAILY Qty: 30 3RF Rx Instructions: Stop all other NSAIDs. amitriptyline 10 MG tablet 10 mg PO QHS sertraline 25 MG tablet 25 mg PO DAILY omeprazole 20 MG capsule,delayed release(DR/EC) 20 mg PO DAILY losartan 100 MG tablet 100 mg PO DAILY Topiramate 25 MG tablet 25 mg PO BID amlodipine 5 MG tablet 5 mg PO DAILY Qty: 30 0RF hydrochlorothiazide 25 MG tablet 25 mg PO DAILY Qty: 30 0RF metoprolol tartrate 25 MG tablet 25 mg PO BID Qty: 1 0RF Primary Care Provider: Freya Krishna NP Referrals: Freya Krishna NP, [facility] [Primary Care Provider] - 3-5 Days Activity Restrictions/Additional Instructions: He will need to see your provider for outpatient workup to determine cause of your chest pain. Print Language: Kazakh Disposition Disposition: Home, Self Care
[2024-04-20 12:09] LABS: Anion Gap 8 (5-15); BUN 14 mg/dL (7-18); Calcium,Total 9.9 mg/dL (8.5-10.1); Chloride 107 mmol/L (98-107); EST Glomerular Filtration Rate 55 mL/min (>60); Est Glom Filt Rate - Afr Amer 66 mL/min (>60); Estimated Creatinine Clearance 91.61 ml/min; Glucose 150 mg/dL (74-106); Sodium Level 139 mmol/L (136-145); Troponin-I HS (w/2H Reflex) 7 pg/mL (3.0-78.0)
[2024-04-20 12:27] VITALS: BP 118/79; PULSE 60; RESP 18; O2SAT 94
[2024-04-20 13:00] VITALS: BP 126/75; PULSE 74; RESP 18; O2SAT 96
[2024-04-20 13:49] LABS: Reflex Troponin-HS? (from REC) Y
[2024-04-20 14:00] VITALS: BP 129/83; PULSE 65; RESP 96; O2SAT 98
[2024-04-20 14:19] LABS: Troponin-I HS 7 pg/mL (3.0-78.0)
[2024-04-20 14:56] VITALS: BP 124/76; PULSE 61; RESP 18; TEMP 36.6; O2SAT 99
== END 2024-04-20 14:57 | disposition home or self-care (01) ==
PROVIDERS: Emergency Provider Emergency Medicine; PCP Nurse Practitioner Family; Visit Provider Emergency Medicine
DX: R07.9 Chest pain, unspecified (principal); I48.91 Unspecified atrial fibrillation; I10 Essential (primary) hypertension; K21.9 Gastro-esophageal reflux disease without esophagitis; Z87.891 Personal history of nicotine dependence
CPT/HCPCS: 71045; 80048; 84484; 85025; 93005; 99284